=== PATIENT | female | born 1970 | race Caucasian/White ===

== ENCOUNTER 2022-03-06 11:48 | Emergency (ER) | payer OTHER ==
[2022-03-06 13:49] LABS: BILIRUBIN NEGATIVE (NEGATIVE); BLOOD NEGATIVE Ery/uL (NEGATIVE); CLARITY HAZY (CLEAR); COLOR YELLOW (YELLOW); GLUCOSE (U) NORMAL (NORMAL); LEUKOCYTES TRACE Leu/uL (NEGATIVE); NITRITE NEGATIVE (NEGATIVE); PROTEIN NEGATIVE (NEGATIVE); SPECIFIC GRAVITY 1.015 (1.001-1.030); UROBILINOGEN 0.2 mg/dL (0.2-1.0)
[2022-03-06 13:53] LABS: URINARY WBC RARE
[2022-03-06 13:54] LABS: AMORPHOUS URATES CRYSTALS MODERATE; BACTERIA TRACE; ECSTASY (MDMA) NEGATIVE (NEGATIVE); MARIJUANA (THC) NEGATIVE (NEGATIVE); METHADONE NEGATIVE (NEGATIVE); OPIATES NEGATIVE (NEGATIVE); SQUAMOUS EPITHELIAL CELLS RARE
[2022-03-06 13:55] LABS: AMPHETAMINES NEGATIVE (NEGATIVE); BARBITURATES NEGATIVE (NEGATIVE); OXYCODONE NEGATIVE (NEGATIVE)
== END 2022-03-06 14:20 | disposition home or self-care (01) ==
LOC: FER 11:48
PROVIDERS: Nurse Practitioner Family
DX: M79.641 Pain in right hand (principal); L98.9 Disorder of the skin and subcutaneous tissue, unspecified; M25.531 Pain in right wrist; Z28.311 Partially vaccinated for COVID-19
CPT/HCPCS: 80305; 81001; 99283